=== PATIENT | male | born 1975 | race Caucasian/White ===

== ENCOUNTER 2020-08-29 09:03 | Emergency (ER) | payer BC ==
[~2020-08-29] VITALS: Wt 99.8 kg
[2020-08-29 10:23] LABS: BASO # 0.1 10*3/uL (0.0-0.1); BASO % 0.6 % (0.0-1.0); EOS # 0.2 10*3/uL (0.0-0.4); EOS % 2.4 % (1.0-4.0); HEMATOCRIT 50.6 % (42.0-52.0); LYMPH # 2.2 10*3/uL (1.3-4.4); LYMPH % 25.3 % (27.0-41.0); MEAN CELL VOLUME 91.5 fl (80.0-94.0); MEAN CORPUSCULAR HGB 30.9 pg (27.0-31.0); MEAN CORPUSCULAR HGB CONC 33.8 g/dl (33.0-37.0); MEAN PLATELET VOLUME 8.9 fl (9.6-12.3); MONO # 0.7 10*3/uL (0.1-1.0); MONO % 8.4 % (3.0-9.0); NEUT # 5.5 10*3/uL (2.3-7.9); NEUT % 63.1 % (47.0-73.0); PLATELET COUNT AUTOMATED 274 10*3/uL (130-400); RED BLOOD COUNT 5.53 10*6/uL (4.50-5.90); RED CELL DISTRI WIDTH 12.9 % (0-14.5); WHITE BLOOD COUNT 8.7 10*3/uL (4.8-10.8)
[2020-08-29 10:38] LABS: ALBUMIN 3.8 gm/dl (3.1-4.5); ALKALINE PHOSPHATASE 112 U/L (45-117); BUN 19 mg/dl (7-24); CHLORIDE 112 mmol/L (98-107); CREATININE 1.26 mg/dL (0.70-1.30); POTASSIUM 4.7 mmol/L (3.5-5.1); SGOT/AST 24 IU/L (3-35); SGPT/ALT 55 U/L (12-78); SODIUM 141 mmol/L (136-145); TOTAL PROTEIN 7.6 gm/dL (6.4-8.2)
[2020-08-29] MEDS ORDERED: PREDNISONE50 MG PO (13:06)
[2020-08-29] MEDS ORDERED: CYCLOBENZAPRINE10 MG PO (13:06)
[2020-08-29] MEDS ORDERED: HYDROCODONE-AC1 EAC1 PO (13:06)
== END 2020-08-29 13:20 | disposition home or self-care (01) ==
LOC: ED 09:03
PROVIDERS: Emergency Medicine
DX: S16.1XXA Strain of muscle, fascia and tendon at neck level, initial encounter (principal); F17.200 Nicotine dependence, unspecified, uncomplicated; Z88.8 Allergy status to other drugs, medicaments and biological substances; X58.XXXA Exposure to other specified factors, initial encounter; Y93.89 Activity, other specified; Y92.89 Other specified places as the place of occurrence of the external cause; Y99.8 Other external cause status

== ENCOUNTER 2021-01-25 18:12 | Emergency (ER) | payer BC ==
[~2021-01-25] VITALS: Ht 180.3 cm; Wt 99.8 kg
[~2021-01-25 18:12] MED LIST: CYCLOBENZAPRINE10 MG PO; HYDROCODONE-AC1 EAC1 PO; PREDNISONE50 MG PO
[2021-01-25] MEDS ORDERED: IBUPROFEN600 MG PO (21:07)
== END 2021-01-25 21:25 | disposition home or self-care (01) ==
LOC: ED 18:12
DX: S83.91XA Sprain of unspecified site of right knee, initial encounter (principal); X50.0XXA Overexertion from strenuous movement or load, initial encounter; Y93.89 Activity, other specified; Y92.89 Other specified places as the place of occurrence of the external cause; Y99.8 Other external cause status

== ENCOUNTER 2021-10-14 23:15 | Emergency (ER) | payer BC ==
[~2021-10-14] VITALS: Ht 177.8 cm; Wt 102.1 kg
[~2021-10-14 23:15] MED LIST changes: +IBUPROFEN600 MG PO
[2021-10-14] MEDS ORDERED: NAPROXEN250 MG PO (23:43)
== END 2021-10-14 23:53 | disposition home or self-care (01) ==
LOC: ED 23:15
DX: G58.8 Other specified mononeuropathies (principal)

== ENCOUNTER → 2021-11-01 | Outpatient (CLI) | payer BC ==
[~2021-11-01] MED LIST changes: +NAPROXEN250 MG PO
== END | disposition home or self-care (01) ==
LOC: RAD 10:07
PROVIDERS: ATTEND Orthopaedic Surgery
DX: M25.511 Pain in right shoulder (principal)

== ENCOUNTER 2023-02-06 21:51 | Emergency (ER) | payer BC ==
[~2023-02-06] VITALS: Ht 180.3 cm; Wt 86.2 kg
[2023-02-06] MEDS ORDERED: VYVANSE70 MG PO (22:05)
[2023-02-06] MEDS ORDERED: LEVOTHYROXINE88 MCG PO (22:05)
[2023-02-06] MEDS ORDERED: AMOXICILLIN875 MG PO (22:13)
== END 2023-02-06 22:18 | disposition home or self-care (01) ==
LOC: ED 21:51
DX: K04.7 Periapical abscess without sinus (principal); K08.89 Other specified disorders of teeth and supporting structures; Z88.8 Allergy status to other drugs, medicaments and biological substances; F41.9 Anxiety disorder, unspecified

== ENCOUNTER 2024-01-20 01:16 | Emergency (ER) | payer MEDICAID ==
[~2024-01-20] VITALS: Ht 180.3 cm; Wt 90.7 kg
[~2024-01-20 01:16] MED LIST changes: +AMOXICILLIN875 MG PO; +LEVOTHYROXINE88 MCG PO; +VYVANSE70 MG PO
[2024-01-20] MEDS ORDERED: NAPROSYN500 MG PO (01:53)
[2024-01-20] MEDS ORDERED: Ketorolac Tromethamine 60 MG/2 ML VIAL IM ONE (01:55)
== END 2024-01-20 01:56 | disposition home or self-care (01) ==
LOC: ED 01:16
DX: S63.681A Other sprain of right thumb, initial encounter (principal); Z88.8 Allergy status to other drugs, medicaments and biological substances; Z79.899 Other long term (current) drug therapy; Z79.2 Long term (current) use of antibiotics; X50.1XXA Overexertion from prolonged static or awkward postures, initial encounter; Y93.89 Activity, other specified; Y92.89 Other specified places as the place of occurrence of the external cause; Y99.8 Other external cause status

== ENCOUNTER 2024-08-26 16:29 | Emergency (ER) | payer MEDICAID ==
[~2024-08-26] VITALS: Ht 180.3 cm; Wt 90.7 kg
[~2024-08-26 16:29] MED LIST changes: +'CLONIDINE0.1 MG PO; +CARAFATE1 G1 PO; +CITALOPRAM10 MG PO; +CITALOPRAM20 MG PO; +LAMOTRIGINE100 MG PO; +MIXED AMPHETAMI20 MG PO; +MIXED AMPHETAMI30 MG PO; +NAPROSYN500 MG PO; +PROTONIX40 MG PO; +TAMSULOSIN HCL0.4 MG PO; +ZITHROMAX250 MG PO
[2024-08-26] MEDS ORDERED: PREDNISONE20 M1 PO (18:08)
[2024-08-26] MEDS ORDERED: Acetaminophen/Oxycodone 5 MG/325 MG TABLET PO ONE (18:20)
[2024-08-26] MEDS ORDERED: methylPREDNISolone sod succ 125 MG VIAL IM ONE (18:20)
== END 2024-08-26 18:46 | disposition home or self-care (01) ==
LOC: ED 16:29
DX: M77.02 Medial epicondylitis, left elbow (principal); K21.9 Gastro-esophageal reflux disease without esophagitis; F41.9 Anxiety disorder, unspecified; Z88.8 Allergy status to other drugs, medicaments and biological substances; Z79.899 Other long term (current) drug therapy; F32.A Depression, unspecified; E03.9 Hypothyroidism, unspecified; Z98.890 Other specified postprocedural states